=== PATIENT | female | born 1970 | race Caucasian/White ===

== ENCOUNTER 2021-02-18 22:19 | Emergency (ER) | payer OTHER ==
[~2021-02-18] VITALS: Ht 162.6 cm; Wt 125.2 kg
[2021-02-18 22:53] VITALS: BP 153/83
--- NOTE | 2021-02-18 22:58 | PHYS DOC ---
Past History Past Surgical History: No Surgical History Adult General Chief Complaint Chief Complaint: ANXIETY/PANIC ATTACK HPI HPI Patient is a 50-year-old female with a past medical history of anxiety and hypertension who presents with a chief complaint of anxiety about her hypertension. States she had some high blood pressure at a previous urgent care appointment and felt worried that her blood pressure was high because she is not on any medications. Denies any recent travel, traumas, illnesses, fevers, headaches, changes in vision, neck pain, chest pain, shortness of breath, abdominal pain, nausea, vomiting. Denies any numbness/weakness/tingling. Review of Systems Review of Systems Review of systems otherwise unremarkable except noted in HPI Allergies Allergies Allergies Coded Allergies Type Severity Reaction Last Updated Verified No Known Drug Allergies 02/18/21 No Physical Exam Physical Exam Constitutional: Well developed, well nourished, no acute distress, non-toxic appearance. [] HENT: Normocephalic, atraumatic, bilateral external ears normal, oropharynx moist, no oral exudates, nose normal. [] Eyes:conjunctiva normal, no discharge. [] Neck: Normal range of motion, no tenderness, supple, no stridor. [] Cardiovascular:Heart rate regular rhythm, no murmur [] Lungs & Thorax: Bilateral breath sounds clear to auscultation [] Abdomen: soft, no tenderness, no masses, no pulsatile masses. [] Skin: Warm, dry, no erythema, no rash. [] Back: No tenderness, no CVA tenderness. [] Extremities: No tenderness, no cyanosis, no clubbing, ROM intact, no edema. [] Neurologic: Alert and oriented X 3, no focal deficits noted. [] Psychologic: Affect normal, judgement normal, mood normal. [] Current Patient Data Vital Signs Vital Signs Date Time Temp Pulse Resp B/P (MAP) Pulse Ox O2 Delivery O2 Flow Rate FiO2 02/18/21 22:53 98.6 83 16 153/83 (106) 98 Room Air EKG EKG [] Radiology/Procedures Radiology/Procedures [] Heart Score C/O Chest Pain: No Risk Factors: Risk Factors: DM, Current or recent (<one month) smoker, HTN, HLP, family history of CAD, obesity. Risk Scores: Risk Factors: DM, Current or recent (<one month) smoker, HTN, HLP, family history of CAD, obesity. Course & Med Decision Making Course & Med Decision Making Patient is a 50-year-old female who presents with anxiety and concern for hypertension Initial vital signs notable for high blood pressure at 153/80 which resolved in the ED. Physical exam noted above. Discussed hypertension management with patient. Advised to follow-up with primary care soon as she can to discuss hypertension management strategies including lifestyle changes and medication. Gave education. Gave return precautions to the ED. Patient grateful, verbalized understanding and agreed with plan of discharge. Dragon Disclaimer Dragon Disclaimer This electronic medical record was generated, in whole or in part, using a voice recognition dictation system. Departure Departure: Impression: Primary Impression: Hypertension Additional Impression: Anxiety Disposition: HOME / SELF CARE / HOMELESS Condition: GOOD Referrals: PCP,UNKNOWN (PCP) GAYLE MCCALL Patient Instructions: Anxiety and Panic Attacks, Hypertension Additional Instructions: Thank you for coming into the emergency department tonight and allowing us to take care of you. Please read the attached information carefully to go back over some of the things we discussed. Is very important that you manage your high blood pressure and have it constantly monitored either at home or with your primary care physician. Please follow-up first thing Sunday with your primary care physician to update on your ED visit and set up a follow-up appointment to discuss hypertension management strategies including lifestyle changes and medication options. Please come back with new or concerning symptoms as discussed. Problem Qualifiers CARLITO BROOKS MD Feb 18, 2021 22:58
== END 2021-02-18 23:09 | disposition home or self-care (01) ==
LOC: ER 22:19
DX: I10 Essential (primary) hypertension (principal); F41.9 Anxiety disorder, unspecified
CPT/HCPCS: 99281